=== PATIENT | female | born 1965 | race Two or more races ===

== ENCOUNTER 2021-07-12 17:53 | Emergency (ER) | payer OTHER ==
[~2021-07-12] VITALS: Ht 160 cm; Wt 117.9 kg
[2021-07-12] MEDS ORDERED: ZESTRIL10 M1 (18:03)
[2021-07-12] MEDS ORDERED: NORFLEX100MG PO (18:09)
[2021-07-12] MEDS ORDERED: DICLOFENAC SODI75 MG PO (18:09)
== END 2021-07-12 18:50 | disposition home or self-care (01) ==
LOC: ER 17:53
DX: M54.50 Low back pain, unspecified (principal); I10 Essential (primary) hypertension